=== PATIENT | male | born 1955 | race Hispanic/Latino ===

== ENCOUNTER 2016-08-28 20:44 | Emergency (ER) | payer MEDICAID, MEDICARE ==
[2016-08-28 20:58] VITALS: BP 146/86; PULSE 90; RESP 18; TEMP 98.6; O2SAT 99
--- NOTE | 2016-08-28 21:21 | ED PDOC ---
HPI: General Adult Time Seen by Provider: 08/28/16 21:01 Chief Complaint (Nursing): GI Problem History Per: Patient History/Exam Limitations: no limitations Onset/Duration Of Symptoms: Days (x 2) Have you had recent travel within the past 21 days to any of the following countries: [place], [place], [place] or [place]?: No Current Symptoms Are (Timing): Still Present Additional Complaint(s): Shaheen Jones is a 61 year old male, with a previous medical history of hemorrhoids and hypertension, who presents to the ED with complaints of exacerbating hemorrhoids ongoing for the past couple of days. Pt reports to straining with bowel movements a couple of days ago which caused the hemorrhoid to protrude out the rectum with blood from the rectal site. Pt reports manually inserting the hemorrhoid back in but states hemorrhoid protrudes with any bowel pressure. Pt denies any fever, chills, nausea or vomiting. Pt denies any additional complaints at this time. PMD: Edouard Thomas MD Past Medical History Reviewed: Historical Data, Nursing Documentation, Vital Signs Vital Signs: Last Vital Signs Temp 98.6 F 08/28/16 20:54 Pulse 90 08/28/16 20:54 Resp 18 08/28/16 20:54 BP 146/86 08/28/16 20:54 Pulse Ox 99 08/28/16 21:41 - Medical History PMH: Anxiety, HTN - Surgical History Surgical History: No Surg Hx - Family History Family History: States: Unknown Family Hx - Allergies Allergies/Adverse Reactions: Allergies Allergy/AdvReac Type Severity Reaction Status Date / Time No Known Allergies Allergy Verified 08/28/16 20:54 Review of Systems ROS Statement: Except As Marked, All Systems Reviewed And Found Negative Constitutional: Negative for: Fever, Chills Gastrointestinal: Positive for: Other (hemorrhoid ). Negative for: Nausea, Vomiting, Diarrhea Physical Exam - Reviewed Nursing Documentation Reviewed: Yes Vital Signs Reviewed: Yes - Physical Exam Appears: Positive for: Well, Non-toxic, No Acute Distress Head Exam: Positive for: ATRAUMATIC, NORMAL INSPECTION, NORMOCEPHALIC Cardiovascular/Chest: Positive for: Regular Rate, Rhythm Respiratory: Positive for: CNT, Normal Breath Sounds Rectal: Positive for: Other (hernia noted. non reducible with bleeding. questionable fissure ) Neurologic/Psych: Positive for: Alert, Oriented - Laboratory Results Result Diagrams: 08/28/16 21:47 08/28/16 21:47 - ECG O2 Sat by Pulse Oximetry: 99 (RA) Pulse Ox Interpretation: Normal Medical Decision Making Medical Decision Making: Initial Impression: hemorrhoid Initial Plan: * CT pelvis with IV contrast * labs * reevaluation Scribe Attestation: Documented by Joy Thakur, acting as a scribe for Aby Gifford PA-C. Provider Scribe Attestation: All medical record entries made by the Scribe were at my direction and personally dictated by me. I have reviewed the chart and agree that the record accurately reflects my personal performance of the history, physical exam, medical decision making, and the department course for this patient. I have also personally directed, reviewed, and agree with the discharge instructions and disposition Disposition - Clinical Impression Clinical Impression: Hemorrhoids - Patient ED Disposition Is Patient to be Admitted: Transfer of Care - Disposition Disposition Time: 00:00 Condition: STABLE Patient Signed Over To: Kortney Stover Handoff Comments: ct results
[2016-08-28 21:51] LABS: BASO # 0.1 K/uL (0.0-0.2); EOS # 0.2 K/uL (0.0-0.7); EOS % 1.8 % (0.0-4.0); HEMATOCRIT 34.3 % (35.0-51.0); LYMPH # 2.6 K/uL (1.0-4.3); LYMPH % 30.6 % (20.0-40.0); MEAN CELL VOLUME 92.5 fl (80.0-94.0); MEAN CORPUSCULAR HEMOGLOBIN 31.2 pg (27.0-31.0); MEAN CORPUSCULAR HGB CONC 33.8 g/dL (33.0-37.0); MEAN PLATELET VOLUME 6.8 fl (7.2-11.7); MONO # 0.9 K/uL (0.0-0.8); MONO % 10.3 % (0.0-10.0); NEUT # 4.9 K/uL (1.8-7.0); NEUT % 56.3 % (50.0-75.0); NRBC % 0.1 % (0.0-0.0); RED CELL DISTRIBUTION WIDTH 13.2 % (11.5-14.5); WHITE BLOOD COUNT 8.6 K/uL (4.8-10.8)
[2016-08-28 22:07] LABS: ALB/GLOB RATIO 1.3 (1.0-2.1); ALKALINE PHOSPHATASE 81 U/L (38-126); ALT/SGPT 25 U/L (21-72); AST/SGOT 31 U/L (17-59); BILIRUBIN,TOTAL 0.4 mg/dl (0.2-1.3); BLOOD UREA NITROGEN 22 mg/dl (9-20); CALCIUM 9.5 mg/dL (8.4-10.2); CARBON DIOXIDE 27 mmol/L (22-30); CHLORIDE 98 mmol/L (98-107); GFR AFRICAN-AMERICAN > 60; GLUCOSE,RANDOM 104 mg/dL (75-110); POTASSIUM 3.7 MMOL/L (3.6-5.0); SODIUM 137 mmol/l (132-148); TOTAL PROTEIN 7.6 G/DL (6.3-8.2)
[2016-08-28] MEDS ORDERED: Sodium Chloride 0.9% 50 ML IV ONE (22:52)
[2016-08-28] MEDS ORDERED: Iohexol 300 100 ML IJ ONE (22:52)
--- NOTE | 2016-08-29 00:04 | CT ---
EXAM: CT Pelvis With Intravenous Contrast. CLINICAL HISTORY: 61 years old, male; Signs and symptoms; Other: Bleeding hemmorroids? ? ; Additional info: Blleding hemmorroid and ? fistula TECHNIQUE: Axial computed tomography images of the pelvis with intravenous contrast. This CT exam was performed using one or more of the following dose reduction techniques: automated exposure control, adjustment of the mA and/or kV according to patient size, and/or use of iterative reconstruction technique. Coronal and sagittal reformatted images were created and reviewed. CONTRAST: 90 mL of [id number] administered intravenously. COMPARISON: No relevant prior studies available. FINDINGS: Bowel: No obstruction. No mucosal thickening. Intraperitoneal space: No significant fluid collection. No free air. Bladder: Unremarkable. Reproductive: Mildly enlarged prostate. Small hydroceles. Bones/joints: No acute fracture. Soft tissues: Unremarkable. Vasculature: Mild atherosclerotic disease. No lower abdominal aortic aneurysm. Lymph nodes: No pathologically enlarged lymph nodes. IMPRESSION: 1.No acute findings. 2.Non-acute findings are described above.
--- NOTE | 2016-08-29 00:56 | ED PDOC ---
- Laboratory Results Result Diagrams: 08/28/16 21:47 08/28/16 21:47 - ECG O2 Sat by Pulse Oximetry: 99 (RA) - Progress ED Course And Treament: Case endorsed to database report writer from [facility] pending CT EXAM: CT Pelvis With Intravenous Contrast. CLINICAL HISTORY: 61 years old, male; Signs and symptoms; Other: Bleeding hemmorroids? ? ; Additional info: Blleding hemmorroid and ? fistula TECHNIQUE: Axial computed tomography images of the pelvis with intravenous contrast. This CT exam was performed using one or more of the following dose reduction techniques: automated exposure control, adjustment of the mA and/or kV according to patient size, and/or use of iterative reconstruction technique. Coronal and sagittal reformatted images were created and reviewed. CONTRAST: 90 mL of [id number] administered intravenously. COMPARISON: No relevant prior studies available. FINDINGS: Bowel: No obstruction. No mucosal thickening. Intraperitoneal space: No significant fluid collection. No free air. Bladder: Unremarkable. Reproductive: Mildly enlarged prostate. Small hydroceles. Bones/joints: No acute fracture. Soft tissues: Unremarkable. Vasculature: Mild atherosclerotic disease. No lower abdominal aortic aneurysm. Lymph nodes: No pathologically enlarged lymph nodes. IMPRESSION: 1. No acute findings. 2. Non-acute findings are described above. Patient educated on findings, discharged with rx Colace, Anusol. Advised follow up PMD/surgery. Return to ED for worsening/concerning symptoms. Disposition - Clinical Impression Clinical Impression: Hemorrhoids - POA Present On Arrival: None - Disposition Referrals: Rodriguez Real MD [Staff Provider] - Disposition: Routine/Home Disposition Time: 00:55 Condition: STABLE Prescriptions: Hydrocortisone 2.5% (Rectal) [Anusol-HC] 30 applic [place] BID #1 tube Docusate [Colace] 100 mg PO BID #30 cap Instructions: Hemorrhoids (ED)
== END 2016-08-29 00:57 | disposition home or self-care (01) ==
LOC: H.ER 20:44
DX: K64.9 Unspecified hemorrhoids (principal)

== ENCOUNTER 2017-05-19 14:06 | Emergency (ER) | payer MEDICAID ==
[2017-05-19 14:19] VITALS: BP 119/62; PULSE 94; RESP 20; TEMP 97.9; O2SAT 97
--- NOTE | 2017-05-19 15:20 | ED PDOC ---
HPI: Trauma/Fall - HPI Time Seen by Provider: 05/19/17 14:30 Chief Complaint (Nursing): Rib Injury Chief Complaint (Provider): Right-Sided Rib Injury History Per: Patient History/Exam Limitations: no limitations Onset/Duration Of Symptoms: Days (x3) Additional Complaint(s): Shaheen Jones is a 61 year old male that presents to the ED with a chief complaint of rib pain that he has been experiencing for the past three days. Patient reports that three days ago, he missed a step while walking on stairs and fell onto his right side, which resulted in an injury to his ribs, though he reports that his right arm was under him and broke his fall. He denies any head injury and denies use of anticoagulants. Past Medical History Reviewed: Historical Data, Nursing Documentation, Vital Signs Vital Signs: Last Vital Signs Temp 97.9 F 05/19/17 14:18 Pulse 94 H 05/19/17 14:18 Resp 20 05/19/17 14:18 BP 119/62 05/19/17 14:18 Pulse Ox 97 05/19/17 14:18 - Medical History PMH: Anxiety, HTN, Hypercholesterolemia - Family History Family History: States: Unknown Family Hx - Home Medications Home Medications: Ambulatory Orders Medication Instructions Recorded Docusate [Colace] 100 mg PO BID #30 cap 08/29/16 Hydrocortisone 2.5% (Rectal) 30 applic [place] BID #1 tube 08/29/16 [Anusol-HC] Docusate [Colace] 100 mg PO BID PRN #20 cap 05/19/17 Naproxen 1 tab PO Q12 PRN #10 tab 05/19/17 Ondansetron ODT [Zofran ODT] 4 mg PO Q8 PRN #8 odt 05/19/17 oxyCODONE/Acetaminophen [Percocet 1 ea PO Q6 PRN #8 tab 05/19/17 5/325 mg Tab] - Allergies Allergies/Adverse Reactions: Allergies Allergy/AdvReac Type Severity Reaction Status Date / Time No Known Allergies Allergy Verified 05/19/17 14:15 Review of Systems Musculoskeletal: Positive for: Other (right-sided rib pain) Physical Exam - Reviewed Nursing Documentation Reviewed: Yes Vital Signs Reviewed: Yes - Physical Exam Appears: Positive for: Non-toxic, No Acute Distress Head Exam: Positive for: ATRAUMATIC, NORMOCEPHALIC Skin: Positive for: Normal Color, Warm Eye Exam: Positive for: EOMI, Normal appearance, PERRL Neck: Positive for: Normal (No C-spine TTP), Painless ROM Cardiovascular/Chest: Positive for: Regular Rate, Rhythm. Negative for: Chest Non Tender (TTP right lower rib cage), Murmur Respiratory: Positive for: Normal Breath Sounds (Lung sounds clear to auscultation). Negative for: Wheezing Gastrointestinal/Abdominal: Positive for: Normal Exam, Soft. Negative for: Tenderness Neurologic/Psych: Positive for: Alert, Oriented. Negative for: Motor/Sensory Deficits - ECG O2 Sat by Pulse Oximetry: 97 (RA) Pulse Ox Interpretation: Normal - Progress ED Course And Treament: xry: no fx noted; no pnuemothorax incentive spirometry instructions given in ED by resp therapist. Medical Decision Making Medical Decision Making: Impression: Rib Fracture Plan: * X-Ray Right Ribs and Chest * Reevaluation X-Ray Right Ribs and Chest FINDINGS: RIGHT RIBS: No fracture or focal lesion visualized. LUNGS: Clear. PLEURA: No pneumothorax or pleural fluid. CARDIOVASCULAR: Normal sized heart. No pulmonary vascular congestion. OTHER FINDINGS: None. IMPRESSION: Unremarkable radiographs of the chest and right ribs. No right rib fracture. 15:47 X-Ray does not show fracture or pneumothorax. Patient given Rx for Colace, Naproxen, Percocet, and Zofran, is stable for discharge home. Clinical Impression: Rib Injury Scribe Attestation: Documented by Nuzhat Brenner, acting as a scribe for Jose Gonzalez PA-C. Provider Scribe Attestation: All medical record entries made by the Scribe were at my direction and personally dictated by me. I have reviewed the chart and agree that the record accurately reflects my personal performance of the history, physical exam, medical decision making, and the department course for this patient. I have also personally directed, reviewed, and agree with the discharge instructions and disposition. Disposition - Clinical Impression Clinical Impression: Rib injury - Patient ED Disposition Is Patient to be Admitted: No - Disposition Disposition: Routine/Home Disposition Time: 15:47 Condition: FAIR Prescriptions: Docusate [Colace] 100 mg PO BID PRN #20 cap PRN Reason: Constipation Naproxen 1 tab PO Q12 PRN #10 tab PRN Reason: Pain, Moderate (4-7) Ondansetron ODT [Zofran ODT] 4 mg PO Q8 PRN #8 odt PRN Reason: Nausea/Vomiting oxyCODONE/Acetaminophen [Percocet 5/325 mg Tab] 1 ea PO Q6 PRN #8 tab PRN Reason: Pain, Severe (8-10) Instructions: Rib Fracture (ED) Forms: [id number] (Bengali)
--- NOTE | 2017-05-19 15:35 | RAD ---
PROCEDURE: Radiographs of the Chest and Right Ribs. HISTORY: rib injury COMPARISON: None available. TECHNIQUE: Frontal radiograph of the chest and multiple oblique radiographs of the right ribs were obtained. FINDINGS: RIGHT RIBS: No fracture or focal lesion visualized. LUNGS: Clear. PLEURA: No pneumothorax or pleural fluid. CARDIOVASCULAR: Normal sized heart. No pulmonary vascular congestion. OTHER FINDINGS: None. IMPRESSION: Unremarkable radiographs of the chest and right ribs. No right rib fracture.
== END 2017-05-19 17:08 | disposition home or self-care (01) ==
LOC: H.ER 14:06
DX: S29.9XXA Unspecified injury of thorax, initial encounter (principal); W10.9XXA Fall (on) (from) unspecified stairs and steps, initial encounter; Y93.01 Activity, walking, marching and hiking; I10 Essential (primary) hypertension; E78.00 Pure hypercholesterolemia, unspecified

== ENCOUNTER 2017-10-15 11:47 | Emergency (ER) | payer OTHER ==
--- NOTE | 2017-10-15 13:04 | ED PDOC ---
HPI: Chest Pain Time Seen by Provider: 10/15/17 13:02 Chief Complaint (Nursing): Chest Pain Chief Complaint (Provider): chest pain History Per: Patient (62 y/o male h/o HTN/HLD here with intermittent chest pain 2 min that occurs after belching/eating meals x 2 days. Denies any vomiting. NOtes additional LUQ pain intermittent unrelated worsening with movement. Has h /o back pain with pain radiating to left leg as well ongoing x years. Patient has no h/o stress test/echo/cardiac evaluation in past.) Past Medical History Reviewed: Historical Data, Nursing Documentation, Vital Signs Vital Signs: Last Vital Signs Temp 98.1 F 10/15/17 12:09 Pulse 86 10/15/17 12:09 Resp 16 10/15/17 12:09 BP 163/80 H 10/15/17 12:09 Pulse Ox 100 10/15/17 13:04 - Medical History PMH: Anxiety, HTN, Hypercholesterolemia - Family History Family History: States: Unknown Family Hx - Home Medications Home Medications: Ambulatory Orders Medication Instructions Recorded Docusate [Colace] 100 mg PO BID #30 cap 08/29/16 Hydrocortisone 2.5% (Rectal) 30 applic [place] BID #1 tube 08/29/16 [Anusol-HC] Docusate [Colace] 100 mg PO BID PRN #20 cap 05/19/17 Naproxen 1 tab PO Q12 PRN #10 tab 05/19/17 Ondansetron ODT [Zofran ODT] 4 mg PO Q8 PRN #8 odt 05/19/17 oxyCODONE/Acetaminophen [Percocet 1 ea PO Q6 PRN #8 tab 05/19/17 5/325 mg Tab] Omeprazole Magnesium [Prilosec Otc] 20 mg PO DAILY #14 tablet. 10/15/17 - Allergies Allergies/Adverse Reactions: Allergies Allergy/AdvReac Type Severity Reaction Status Date / Time No Known Allergies Allergy Verified 05/19/17 14:15 Review of Systems ROS Statement: Except As Marked, All Systems Reviewed And Found Negative Cardiovascular: Positive for: Chest Pain Gastrointestinal: Positive for: Other (belching) Physical Exam - Reviewed Nursing Documentation Reviewed: Yes Vital Signs Reviewed: Yes - Physical Exam Appears: Positive for: Well, Non-toxic, No Acute Distress Head Exam: Positive for: ATRAUMATIC, NORMAL INSPECTION, NORMOCEPHALIC Skin: Positive for: Normal Color, Warm, DRY Eye Exam: Positive for: EOMI, Normal appearance, PERRL ENT: Positive for: Normal ENT Inspection Neck: Positive for: Normal, Painless ROM Cardiovascular/Chest: Positive for: Regular Rate, Rhythm Respiratory: Positive for: CNT, Normal Breath Sounds Gastrointestinal/Abdominal: Positive for: Normal Exam, Soft Back: Positive for: Normal Inspection Extremity: Positive for: Normal ROM Neurologic/Psych: Positive for: Alert, Oriented - Laboratory Results Result Diagrams: 10/15/17 13:47 10/15/17 17:22 - ECG ECG Rhythm: Positive for: Sinus Rhythm (nsr 78bpm no ectopy; no acute changes) O2 Sat by Pulse Oximetry: 100 Disposition - Clinical Impression Clinical Impression: Hyponatremia, Chest pain - Patient ED Disposition Is Patient to be Admitted: No - Disposition Referrals: [facility] [Outside] Disposition: Routine/Home Disposition Time: 17:55 Condition: FAIR Additional Instructions: FOLLOW UP WITH CLINIC ON FRIDAY PLANNED TO REPEAT BLOODWORK AND ARRANGE FURTHER EVALUATION OF SYMPTOMS. Prescriptions: Omeprazole Magnesium [Prilosec Otc] 20 mg PO DAILY #14 tablet.dr Instructions: Chest Pain, Hyponatremia (DC), Gastritis, Ulcer and Gastritis Diet Forms: [employer] (German)
[2017-10-15 13:54] LABS: BASO # 0.1 K/uL (0.0-0.2); BASO % 0.9 % (0.0-2.0); EOS % 0.7 % (0.0-4.0); HEMOGLOBIN 12.3 g/dL (12.0-18.0); LYMPH # 1.8 K/uL (1.0-4.3); MEAN CELL VOLUME 89.4 fl (80.0-94.0); MEAN CORPUSCULAR HEMOGLOBIN 31.6 pg (27.0-31.0); MEAN CORPUSCULAR HGB CONC 35.3 g/dL (33.0-37.0); MEAN PLATELET VOLUME 6.1 fl (7.2-11.7); MONO # 0.6 K/uL (0.0-0.8); MONO % 9.4 % (0.0-10.0); NEUT # 3.8 K/uL (1.8-7.0); RBC 3.89 Mil/uL (4.40-5.90); RED CELL DISTRIBUTION WIDTH 12.1 % (11.5-14.5); WHITE BLOOD COUNT 6.3 K/uL (4.8-10.8)
[2017-10-15 14:05] LABS: ALB/GLOB RATIO 1.4 (1.0-2.1); ALBUMIN 4.3 g/dL (3.5-5.0); ALT/SGPT 36 U/L (21-72); AST/SGOT 35 U/L (17-59); BLOOD UREA NITROGEN 13 mg/dl (9-20); CALCIUM 9.2 mg/dL (8.4-10.2); GFR AFRICAN-AMERICAN > 60; GFR NON-AFRICAN AMERICAN > 60; LIPASE 120 U/L (23-300)
[2017-10-15] MEDS ORDERED: Sodium Chloride 0.9% 1,000 ML IV STA (14:32)
[2017-10-15 17:36] LABS: BLOOD UREA NITROGEN 11 mg/dl (9-20); CALCIUM 8.6 mg/dL (8.4-10.2); GFR AFRICAN-AMERICAN > 60; GFR NON-AFRICAN AMERICAN > 60
--- NOTE | 2017-10-15 17:48 | CARD ---
APPROVED REPORT EKG Measurement Heart [id number] NM [id number] <Conclusion> Normal sinus rhythm Normal ECG
[2017-10-15 18:35] VITALS: BP 145/67; PULSE 78; RESP 17; TEMP 97.8; O2SAT 99
== END 2017-10-15 18:33 | disposition home or self-care (01) ==
LOC: H.ER 11:47
DX: R07.9 Chest pain, unspecified (principal); E87.1 Hypo-osmolality and hyponatremia; I10 Essential (primary) hypertension; E78.00 Pure hypercholesterolemia, unspecified
CPT/HCPCS: 80048; 80053; 83690; 84484; 85025; 93005; 96374; 99284; J7040

== ENCOUNTER 2017-12-09 14:06 | Emergency (ER) | payer OTHER ==
[2017-12-09 14:17] VITALS: RESP 16; O2SAT 100
--- NOTE | 2017-12-09 14:56 | ED PDOC ---
HPI: Chest Pain Time Seen by Provider: 12/09/17 14:23 Chief Complaint (Nursing): Chest Pain Chief Complaint (Provider): Chest Pain History Per: Patient History/Exam Limitations: no limitations Onset/Duration Of Symptoms: Days (since september) Current Symptoms Are (Timing): Still Present Context: Food Quality: Burning Additional Complaint(s): 62 year old male with a history of HTN, high cholesterol, anxiety and gastritis presents to the ED with an intermittent burning sensation in his chest for months, since september. Burning sensation is brought on by food and is relieved when he burps. Patient has been taking Omeprazole since his last visit to the ED on 10/15/2017 with minimal relief. He currently denies discomfort, chest pain, shortness of breath, arm pain and abdominal pain. PMD: Dr. Teofilo Nicolas Past Medical History Reviewed: Historical Data, Nursing Documentation, Vital Signs Vital Signs: Last Vital Signs Temp 98.0 F 12/09/17 17:50 Pulse 88 12/09/17 17:50 Resp 16 12/09/17 17:50 BP 160/72 H 12/09/17 17:50 Pulse Ox 100 12/09/17 18:21 - Medical History PMH: Anxiety, HTN, Hypercholesterolemia - Surgical History Surgical History: No Surg Hx - Family History Family History: States: Unknown Family Hx - Social History Current smoker - smoking cessation education provided: No Ex-Smoker (has not smoked in the last 12 months): Yes Alcohol: Occasional Drugs: Denies - Home Medications Home Medications: Ambulatory Orders Medication Instructions Recorded Docusate [Colace] 100 mg PO BID #30 cap 08/29/16 Hydrocortisone 2.5% (Rectal) 30 applic [place] BID #1 tube 08/29/16 [Anusol-HC] Docusate [Colace] 100 mg PO BID PRN #20 cap 05/19/17 Naproxen 1 tab PO Q12 PRN #10 tab 05/19/17 Ondansetron ODT [Zofran ODT] 4 mg PO Q8 PRN #8 odt 05/19/17 oxyCODONE/Acetaminophen [Percocet 1 ea PO Q6 PRN #8 tab 05/19/17 5/325 mg Tab] Omeprazole Magnesium [Prilosec Otc] 20 mg PO DAILY #14 tablet. 10/15/17 Famotidine [Pepcid] 20 mg PO DAILY PRN #10 tab 12/09/17 - Allergies Allergies/Adverse Reactions: Allergies Allergy/AdvReac Type Severity Reaction Status Date / Time No Known Allergies Allergy Verified 12/09/17 14:14 TEZ Risk Score for UA/NSTEMI - TEZ Risk Score Age > 64: NO 3 or more CAD Risk Factors: NO Known CAD (Stenosis greater than 50%): NO Aspirin use in past 7 days: NO Severe Angina: NO EKG ST changes greater than 0.5mm: NO Positive Cardiac Marker: NO TEZ Score: 0 Risk %: 5% Curb-65 Severity Score - CURB-65 Severity Score Confusion: No Bun >19mg/dl (>7mmol/L): No Respiratory Rate greater than/equal to 30: No Systolic BP <90 or Diastolic BP less than/equal 60mmHg: No Age >64: No Curb-65 Score: 0 Percentage 30-day mortality: 0.6% Wells Criteria for PE - Wells Criteria for Pulmonary Embolism Clinical Signs and Symptoms of DVT: No P.E is #1 Diagnosis, or Equally Likely: No Heart Rate >100: No Immobilization at least 3 days;Surgery previous 4 weeks: No Previous, objectively diagnosed PE or DVT: No Hemoptysis: No Malignancy w/treatment within 6 months, or palliative: No Total Score: 0 Review of Systems ROS Statement: Except As Marked, All Systems Reviewed And Found Negative Cardiovascular: Negative for: Chest Pain Respiratory: Negative for: Shortness of Breath Gastrointestinal: Negative for: Abdominal Pain Musculoskeletal: Negative for: Arm Pain Physical Exam - Reviewed Nursing Documentation Reviewed: Yes Vital Signs Reviewed: Yes - Physical Exam Appears: Positive for: Non-toxic, No Acute Distress Head Exam: Positive for: ATRAUMATIC, NORMAL INSPECTION, NORMOCEPHALIC Skin: Positive for: Normal Color, Warm, DRY Eye Exam: Positive for: EOMI, Normal appearance, PERRL Neck: Positive for: Normal, Painless ROM, Supple Cardiovascular/Chest: Positive for: Regular Rate, Rhythm. Negative for: Murmur Respiratory: Positive for: Normal Breath Sounds. Negative for: Respiratory Distress Gastrointestinal/Abdominal: Positive for: Normal Exam, Soft. Negative for: Tenderness Extremity: Positive for: Normal ROM. Negative for: Deformity Neurologic/Psych: Positive for: Alert, Oriented. Negative for: Motor/Sensory Deficits - Laboratory Results Result Diagrams: 12/09/17 15:45 12/09/17 15:45 - ECG O2 Sat by Pulse Oximetry: 100 (RA) Pulse Ox Interpretation: Normal Medical Decision Making Medical Decision Making: Time: 14:30 Impression: gastritis exacerbation; r/o electrolyte derangement vs infection Initial Plan: --CMP --CXR --Lipase --Troponin I --CBC with diff Chest x-ray FINDINGS: LUNGS: No active pulmonary disease. PLEURA: No significant pleural effusion identified. No pneumothorax apparent. CARDIOVASCULAR: Atherosclerotic aortic calcifications. Cardiomediastinal silhouette within normal limits. OSSEOUS STRUCTURES: Unchanged. VISUALIZED UPPER ABDOMEN: Normal. OTHER FINDINGS: None. IMPRESSION: No active disease. Time; 18:00 Labs were reviewed and are normal except for low sodium levels. Patient has a history of low sodium when looking at old labs. pt aware. EKG was normal, sinus rhythm . troponin negative. --Patient reports feeling fine throughout ER stay and thinks his symptoms were due to anxiety or gastritis. --He is stable and will be discharged. Advised to follow up with GI doctor for endoscopy and follow up with clinic where he follows for maintenance of blood pressure. Patient requires no further treatment in the ED at this time. ---- Scribe Attestation: Documented by Alis Cooper, acting as a scribe for Wayne Ann MD Provider Scribe Attestation: All medical record entries made by the Scribe were at my direction and personally dictated by me. I have reviewed the chart and agree that the record accurately reflects my personal performance of the history, physical exam, medical decision making, and the department course for this patient. I have also personally directed, reviewed, and agree with the discharge instructions and disposition. Disposition - Clinical Impression Clinical Impression: Gastritis - Patient ED Disposition Is Patient to be Admitted: No Counseled Patient/Family Regarding: Studies Performed, Diagnosis, Need For Followup - Disposition Referrals: [facility] [Outside] Leopoldo Sarah MD [Medical Doctor] - Disposition: Routine/Home Disposition Time: 18:00 Condition: IMPROVED Additional Instructions: follow up with GI doctor as well as in the clinic this week return to the ED with any worsening or concerning symptoms MARCELA ALVAREZ, thank you for letting us take care of you today. Your provider was Wayne Ann MD and you were treated for CHEST PAIN. The emergency medical care you received today was directed at your acute symptoms. If you were prescribed any medication, please fill it and take as directed. It may take several days for your symptoms to resolve. Return to the Emergency Department if your symptoms worsen, do not improve, or if you have any other problems. Please contact your doctor or call one of the physicians/clinics you have been referred to that are listed on the Patient Visit Information form that is included in your discharge packet. Bring any paperwork you were given at discharge with you along with any medications you are taking to your follow up visit. Our treatment cannot replace ongoing medical care by a primary care provider outside of the emergency department. Thank you for allowing the [facility] team to be part of your care today. If you had an X-Ray or CT scan: A Radiologist will review the ED reading if any change in treatment is needed we will contact you. If you had a blood, urine, or wound culture: It will take several days for the results, if any change in treatment is needed we will contact you. If you had an STI test: It will take 48 hours for the results. Please call after 1 week if you have not heard back. Prescriptions: Famotidine [Pepcid] 20 mg PO DAILY PRN #10 tab PRN Reason: Heartburn Instructions: Gastritis (DC) Forms: [employer] (Hungarian)
[2017-12-09 15:59] LABS: BASO % 0.6 % (0.0-2.0); EOS # 0.1 K/uL (0.0-0.7); EOS % 1.1 % (0.0-4.0); HEMOGLOBIN 12.2 g/dL (12.0-18.0); MEAN CELL VOLUME 90.1 fl (80.0-94.0); MEAN CORPUSCULAR HEMOGLOBIN 31.1 pg (27.0-31.0); MEAN CORPUSCULAR HGB CONC 34.5 g/dL (33.0-37.0); MEAN PLATELET VOLUME 6.5 fl (7.2-11.7); MONO # 0.8 K/uL (0.0-0.8); MONO % 10.5 % (0.0-10.0); NEUT # 4.8 K/uL (1.8-7.0); NEUT % 61.8 % (50.0-75.0); RBC 3.92 Mil/uL (4.40-5.90); RED CELL DISTRIBUTION WIDTH 12.2 % (11.5-14.5); WHITE BLOOD COUNT 7.7 K/uL (4.8-10.8)
[2017-12-09 16:11] LABS: ALB/GLOB RATIO 1.4 (1.0-2.1); ALBUMIN 4.5 g/dL (3.5-5.0); ALT/SGPT 34 U/L (21-72); AST/SGOT 33 U/L (17-59); BLOOD UREA NITROGEN 14 mg/dl (9-20); CALCIUM 9.5 mg/dL (8.4-10.2); GFR AFRICAN-AMERICAN > 60; GFR NON-AFRICAN AMERICAN > 60; LIPASE 130 U/L (23-300)
--- NOTE | 2017-12-09 17:06 | RAD ---
Date of service: 12/09/2017 HISTORY: chest pain COMPARISON: Chest radiograph dated 05/19/2017. TECHNIQUE: Chest PA and lateral FINDINGS: LUNGS: No active pulmonary disease. PLEURA: No significant pleural effusion identified. No pneumothorax apparent. CARDIOVASCULAR: Atherosclerotic aortic calcifications. Cardiomediastinal silhouette within normal limits. OSSEOUS STRUCTURES: Unchanged. VISUALIZED UPPER ABDOMEN: Normal. OTHER FINDINGS: None. IMPRESSION: No active disease.
[2017-12-09 19:33] VITALS: BP 160/72; PULSE 88; TEMP 98
== END 2017-12-09 17:53 | disposition home or self-care (01) ==
LOC: H.ER 14:06
DX: K29.70 Gastritis, unspecified, without bleeding (principal); I10 Essential (primary) hypertension; E78.00 Pure hypercholesterolemia, unspecified; Z87.891 Personal history of nicotine dependence

== ENCOUNTER 2018-01-29 17:04 | Emergency (ER) | payer OTHER ==
[2018-01-29 18:14] LABS: BASO # 0.1 K/uL (0.0-0.2); BASO % 0.8 % (0.0-2.0); EOS # 0.2 K/uL (0.0-0.7); EOS % 2.3 % (0.0-4.0); HEMOGLOBIN 12.1 g/dL (12.0-18.0); LYMPH # 2.8 K/uL (1.0-4.3); LYMPH % 34.8 % (20.0-40.0); MEAN CELL VOLUME 93.2 fl (80.0-94.0); MEAN CORPUSCULAR HEMOGLOBIN 31.5 pg (27.0-31.0); MEAN CORPUSCULAR HGB CONC 33.8 g/dL (33.0-37.0); MEAN PLATELET VOLUME 6.6 fl (7.2-11.7); MONO # 0.8 K/uL (0.0-0.8); MONO % 10.5 % (0.0-10.0); NEUT # 4.1 K/uL (1.8-7.0); NEUT % 51.6 % (50.0-75.0); RBC 3.83 Mil/uL (4.40-5.90); RED CELL DISTRIBUTION WIDTH 13.2 % (11.5-14.5); WHITE BLOOD COUNT 7.9 K/uL (4.8-10.8)
[2018-01-29 18:21] LABS: PROTHROMBIN TIME 11.3 Seconds (9.8-13.1)
[2018-01-29 18:23] LABS: ALB/GLOB RATIO 1.2 (1.0-2.1); ALBUMIN 4.4 g/dL (3.5-5.0); ALT/SGPT 24 U/L (21-72); AST/SGOT 29 U/L (17-59); BLOOD UREA NITROGEN 13 mg/dl (9-20); CALCIUM 9.2 mg/dL (8.4-10.2); GFR NON-AFRICAN AMERICAN > 60
--- NOTE | 2018-01-29 18:55 | CT ---
Date of service: 01/29/2018 PROCEDURE: CT HEAD WITHOUT CONTRAST. HISTORY: loss of balance COMPARISON: None available. TECHNIQUE: Axial computed tomography images were obtained through the head/brain without intravenous contrast. Radiation dose: Total exam DLP = 720.2 MGy-cm. This CT exam was performed using one or more of the following dose reduction techniques: Automated exposure control, adjustment of the mA and/or kV according to patient size, and/or use of iterative reconstruction technique. FINDINGS: HEMORRHAGE: No intracranial hemorrhage. BRAIN: No mass effect or edema. No atrophy or chronic microvascular ischemic changes. VENTRICLES: Unremarkable. No hydrocephalus. CALVARIUM: Unremarkable. PARANASAL SINUSES: Unremarkable as visualized. No significant inflammatory changes. MASTOID AIR CELLS: Unremarkable as visualized. No inflammatory changes. OTHER FINDINGS: None. IMPRESSION: No acute intracranial pathology.
--- NOTE | 2018-01-29 19:11 | ED PDOC ---
Syncope/Near Syncope/Dizziness Time Seen by Provider: 01/29/18 17:43 Chief Complaint (Nursing): Dizziness/Lightheaded Chief Complaint (Provider): Dizziness/Lightheaded History Per: Patient History/Exam Limitations: no limitations Onset/Duration Of Symptoms: Days (x7) Current Symptoms Are (Timing): Still Present Additional Complaint(s): Shaheen Jones is a 62 year old male with a past medical history of hypertension, gastritis, anxiety, and cholesterol who is presenting to the ED with complaints of intermittent episodes of "feeling wobbly" with associated eye throbbing and tingling inside head onset 1 week ago. Patient states that he was seen in the clinic yesterday where he was evaluated and his hyponatremia was normal and patient states that he is unsure if this is due to his anxiety. He admits that he expressed concerns of this to Dr. Aguilar yesterday in the clinic but he is still unsure. Patient offers no other medical complaints at this time. PMD: none provided Past Medical History Reviewed: Historical Data, Nursing Documentation, Vital Signs Vital Signs: Last Vital Signs Temp 98.2 F 01/29/18 17:13 Pulse 84 01/29/18 17:13 Resp 16 01/29/18 17:13 BP 167/80 H 01/29/18 17:13 Pulse Ox 97 01/29/18 17:13 - Medical History PMH: Anxiety, Gastritis, HTN, Hypercholesterolemia Denies: Chronic Kidney Disease - Surgical History Surgical History: No Surg Hx - Family History Family History: States: Unknown Family Hx - Social History Current smoker - smoking cessation education provided: No Ex-Smoker (has not smoked in the last 12 months): Yes Alcohol: Social Drugs: Denies - Immunization History Hx Tetanus Toxoid Vaccination: No Hx Influenza Vaccination: No Hx Pneumococcal Vaccination: No - Home Medications Home Medications: Ambulatory Orders Medication Instructions Recorded Docusate [Colace] 100 mg PO BID #30 cap 08/29/16 Hydrocortisone 2.5% (Rectal) 30 applic [place] BID #1 tube 08/29/16 [Anusol-HC] Docusate [Colace] 100 mg PO BID PRN #20 cap 05/19/17 Naproxen 1 tab PO Q12 PRN #10 tab 05/19/17 Ondansetron ODT [Zofran ODT] 4 mg PO Q8 PRN #8 odt 05/19/17 oxyCODONE/Acetaminophen [Percocet 1 ea PO Q6 PRN #8 tab 05/19/17 5/325 mg Tab] Omeprazole Magnesium [Prilosec Otc] 20 mg PO DAILY #14 tablet. 10/15/17 Famotidine [Pepcid] 20 mg PO DAILY PRN #10 tab 12/09/17 - Allergies Allergies/Adverse Reactions: Allergies Allergy/AdvReac Type Severity Reaction Status Date / Time No Known Allergies Allergy Verified 01/29/18 17:13 Review of Systems ROS Statement: Except As Marked, All Systems Reviewed And Found Negative Eyes: Positive for: Other (eye throbbing) Neurological: Positive for: Other (tingling inside head, feels wobbly) Psych: Positive for: Anxiety Physical Exam - Reviewed Nursing Documentation Reviewed: Yes Vital Signs Reviewed: Yes - Physical Exam Appears: Positive for: Well, Non-toxic, No Acute Distress Head Exam: Positive for: ATRAUMATIC, NORMAL INSPECTION, NORMOCEPHALIC Skin: Positive for: Normal Color, Warm, DRY Eye Exam: Positive for: EOMI, Normal appearance, PERRL ENT: Positive for: Normal ENT Inspection Neck: Positive for: Normal, Painless ROM Cardiovascular/Chest: Positive for: Regular Rate, Rhythm. Negative for: Murmur Respiratory: Positive for: Normal Breath Sounds. Negative for: Respiratory Distress Gastrointestinal/Abdominal: Positive for: Normal Exam, Soft. Negative for: Tenderness Back: Positive for: Normal Inspection Extremity: Positive for: Normal ROM. 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 Negative for: Motor/Sensory Deficits - Laboratory Results Result Diagrams: 01/29/18 18:00 01/29/18 18:00 - ECG O2 Sat by Pulse Oximetry: 97 (RA) Pulse Ox Interpretation: Normal Medical Decision Making Medical Decision Making: Time: 18:00 Plan: --CT Head --CMP --CBC --Coag CT Head: FINDINGS: HEMORRHAGE: No intracranial hemorrhage. BRAIN: No mass effect or edema. No atrophy or chronic microvascular ischemic changes. VENTRICLES: Unremarkable. No hydrocephalus. CALVARIUM: Unremarkable. PARANASAL SINUSES: Unremarkable as visualized. No significant inflammatory changes. MASTOID AIR CELLS: Unremarkable as visualized. No inflammatory changes. OTHER FINDINGS: None. IMPRESSION: No acute intracranial pathology. 20:45 Labs were reviewed with benign results. Upon provider evaluation patient is medically stable, and requires no further treatment in the ED at this time. Patient will be discharged home. Counseling was provided and all questions were answered regarding diagnosis and need for outpatient follow up. There is agreement to discharge plan. Return if symptoms persist or worsen. Patient is ambulating well. He is reqsting to follow up with Dr. Desouza since he is in the area. Provider will give patient a referral. Scribe Attestation: Documented by Corrie Rahman, acting as a scribe for Wayne Ann MD. Provider Scribe Attestation: All medical record entries made by the Scribe were at my direction and personally dictated by me. I have reviewed the chart and agree that the record accurately reflects my personal performance of the history, physical exam, medical decision making, and the department course for this patient. I have also personally directed, reviewed, and agree with the discharge instructions and disposition. Disposition - Clinical Impression Clinical Impression: Balance problem - Disposition Condition: IMPROVED Forms: [employer] (Lao)
[2018-01-29 20:45] VITALS: RESP 18
[2018-01-29 21:42] VITALS: BP 132/80; PULSE 80; TEMP 98.1; O2SAT 99
== END 2018-01-29 21:42 | disposition home or self-care (01) ==
LOC: H.ER 17:04
DX: R42 Dizziness and giddiness (principal); R26.81 Unsteadiness on feet; E78.00 Pure hypercholesterolemia, unspecified; I10 Essential (primary) hypertension

== ENCOUNTER 2018-03-23 15:49 | Emergency (ER) | payer OTHER ==
--- NOTE | 2018-03-23 16:53 | ED PDOC ---
HPI: Abdomen Time Seen by Provider: 03/23/18 16:10 Chief Complaint (Nursing): Abdominal Pain Chief Complaint (Provider): LUQ pain History Per: Patient History/Exam Limitations: no limitations Additional Complaint(s): Pt reports LUQ pain X 2 days, intermittent, started while eating, worse with pressing down in area, feels a "ball" in LUQ. Also c/o constipation X 2 days. Denies fever, nausea, vomiting, diarrhea, CP, SOB. Past Medical History Reviewed: Nursing Documentation, Vital Signs Vital Signs: Last Vital Signs Temp 97.8 F 03/23/18 15:59 Pulse 97 H 03/23/18 15:59 Resp 16 03/23/18 15:59 BP 183/89 H 03/23/18 15:59 Pulse Ox 100 03/23/18 15:59 - Medical History PMH: Anxiety, Gastritis, HTN, Hypercholesterolemia Denies: Chronic Kidney Disease - Surgical History Surgical History: No Surg Hx - Family History Family History: States: Unknown Family Hx - Living Arrangements Living Arrangements: With Family - Social History Current smoker - smoking cessation education provided: No Alcohol: None - Immunization History Hx Tetanus Toxoid Vaccination: No Hx Influenza Vaccination: No Hx Pneumococcal Vaccination: No - Home Medications Home Medications: Ambulatory Orders Medication Instructions Recorded Docusate [Colace] 100 mg PO BID #30 cap 08/29/16 Hydrocortisone 2.5% (Rectal) 30 applic [place] BID #1 tube 08/29/16 [Anusol-HC] Docusate [Colace] 100 mg PO BID PRN #20 cap 05/19/17 Naproxen 1 tab PO Q12 PRN #10 tab 05/19/17 Ondansetron ODT [Zofran ODT] 4 mg PO Q8 PRN #8 odt 05/19/17 oxyCODONE/Acetaminophen [Percocet 1 ea PO Q6 PRN #8 tab 05/19/17 5/325 mg Tab] Omeprazole Magnesium [Prilosec Otc] 20 mg PO DAILY #14 tablet. 10/15/17 Famotidine [Pepcid] 20 mg PO DAILY PRN #10 tab 12/09/17 Famotidine [Pepcid] 20 mg PO BID #20 tab 03/23/18 Ibuprofen [Motrin] 600 mg PO Q6H PRN #20 tab 03/23/18 - Allergies Allergies/Adverse Reactions: Allergies Allergy/AdvReac Type Severity Reaction Status Date / Time No Known Allergies Allergy Verified 01/29/18 17:13 Review of Systems Constitutional: Negative for: Fever, Chills Cardiovascular: Negative for: Chest Pain, Palpitations Respiratory: Negative for: Cough, Shortness of Breath Gastrointestinal: Positive for: Abdominal Pain. Negative for: Nausea, Vomiting, Diarrhea Genitourinary Male: Negative for: Dysuria, Hematuria Musculoskeletal: Negative for: Neck Pain, Back Pain Skin: Negative for: Rash, Lesions Neurological: Negative for: Headache Physical Exam - Reviewed Nursing Documentation Reviewed: Yes Vital Signs Reviewed: Yes - Physical Exam Appears: Positive for: Well, No Acute Distress Head Exam: Positive for: ATRAUMATIC, NORMAL INSPECTION Skin: Positive for: Normal Color, Warm, Dry Eye Exam: Positive for: Normal appearance, EOMI, PERRL Cardiovascular/Chest: Positive for: Regular Rate, Rhythm Respiratory: Positive for: Normal Breath Sounds. Negative for: Crackles, Rales, Wheezing Gastrointestinal/Abdominal: Positive for: Bowel Sounds, Soft, Tenderness (Epigastric/LUQ). Negative for: Mass, Distended, Guarding, Rebound Back: Positive for: Normal Inspection. Negative for: L CVA Tenderness, R CVA Tenderness Extremity: Positive for: Normal ROM Neurologic/Psych: Positive for: Alert, Oriented - Laboratory Results Result Diagrams: 03/23/18 17:33 03/23/18 17:33 - ECG O2 Sat by Pulse Oximetry: 100 Medical Decision Making Medical Decision Makin yo male with LUQ pain. - labs - EKG - CT abd/pelvis Time: 1841 CT RESULTS FINDINGS: LOWER THORAX: Unremarkable. LIVER: Unremarkable. No gross lesion or ductal dilatation. GALLBLADDER AND BILE DUCTS: Unremarkable. PANCREAS: Unremarkable. No gross lesion or ductal dilatation. SPLEEN: Unremarkable. ADRENALS: Unremarkable. No mass. KIDNEYS AND URETERS: Unremarkable. No hydronephrosis. No solid mass. VASCULATURE: Unremarkable. No aortic aneurysm. There is mild calcified atheromatous plaque of the descending thoracic aorta. BOWEL: Unremarkable. No obstruction. No gross mural thickening. APPENDIX: Normal appendix. PERITONEUM: Unremarkable. No free fluid. No free air. LYMPH NODES: Unremarkable. No enlarged lymph nodes. BLADDER: Unremarkable. REPRODUCTIVE: Normal prostate BONES: No acute fracture. OTHER FINDINGS: None. IMPRESSION: Unremarkable examination. Disposition - Clinical Impression Clinical Impression: Abdominal pain - Disposition Referrals: [facility] [Outside] Disposition Time: 22:00 Condition: STABLE Prescriptions: Famotidine [Pepcid] 20 mg PO BID #20 tab Ibuprofen [Motrin] 600 mg PO Q6H PRN #20 tab PRN Reason: Pain, Moderate (4-7) Instructions: Acute Abdomen (Belly Pain) Forms: [email or web address] ([place] Korean)
[2018-03-23 17:36] LABS: BASO # 0.1 K/uL (0.0-0.2); BASO % 0.8 % (0.0-2.0); EOS # 0.1 K/uL (0.0-0.7); EOS % 1.1 % (0.0-4.0); HEMOGLOBIN 12.5 g/dL (12.0-18.0); LYMPH # 1.8 K/uL (1.0-4.3); LYMPH % 27.8 % (20.0-40.0); MEAN CELL VOLUME 92.2 fl (80.0-94.0); MEAN CORPUSCULAR HEMOGLOBIN 31.4 pg (27.0-31.0); MEAN PLATELET VOLUME 6.5 fl (7.2-11.7); MONO # 0.6 K/uL (0.0-0.8); MONO % 9.5 % (0.0-10.0); NEUT # 3.9 K/uL (1.8-7.0); NEUT % 60.8 % (50.0-75.0); RBC 3.98 Mil/uL (4.40-5.90); RED CELL DISTRIBUTION WIDTH 12.6 % (11.5-14.5); WHITE BLOOD COUNT 6.4 K/uL (4.8-10.8)
--- NOTE | 2018-03-23 17:39 | RAD ---
Date of service: 03/23/2018 HISTORY: CP COMPARISON: 12/09/2017 TECHNIQUE: Chest PA and lateral FINDINGS: LUNGS: No active pulmonary disease. PLEURA: No significant pleural effusion identified. No pneumothorax apparent. CARDIOVASCULAR: No aortic atherosclerotic calcification present OSSEOUS STRUCTURES: No significant abnormalities. VISUALIZED UPPER ABDOMEN: Normal. OTHER FINDINGS: None. IMPRESSION: No active disease.
[2018-03-23 17:44] LABS: PROTHROMBIN TIME 11.5 Seconds (9.8-13.1)
[2018-03-23 17:47] LABS: PARTIAL THROMBOPLASTIN TIME 29.8 Seconds (25.6-37.1)
[2018-03-23 17:51] LABS: ALB/GLOB RATIO 1.2 (1.0-2.1); ALBUMIN 4.2 g/dL (3.5-5.0); ALT/SGPT 29 U/L (21-72); AST/SGOT 36 U/L (17-59); BLOOD UREA NITROGEN 14 mg/dl (9-20); CALCIUM 9.6 mg/dL (8.4-10.2); GFR NON-AFRICAN AMERICAN > 60; LIPASE 87 U/L (23-300)
[2018-03-23] MEDS ORDERED: Sodium Chloride 0.9% 50 ML IV ONE (18:12)
[2018-03-23] MEDS ORDERED: Iohexol 300 100 ML IJ ONE (18:12)
--- NOTE | 2018-03-23 18:56 | CT ---
Date of service: 03/23/2018 PROCEDURE: CT Abdomen and Pelvis with contrast HISTORY: LUQ pain COMPARISON: CT pelvis 08/28/2016 TECHNIQUE: Contrast dose: 95 mL Omnipaque 300 Radiation dose: Total exam DLP = 288.13 mGy-cm. This CT exam was performed using one or more of the following dose reduction techniques: Automated exposure control, adjustment of the mA and/or kV according to patient size, and/or use of iterative reconstruction technique. FINDINGS: LOWER THORAX: Unremarkable. LIVER: Unremarkable. No gross lesion or ductal dilatation. GALLBLADDER AND BILE DUCTS: Unremarkable. PANCREAS: Unremarkable. No gross lesion or ductal dilatation. SPLEEN: Unremarkable. ADRENALS: Unremarkable. No mass. KIDNEYS AND URETERS: Unremarkable. No hydronephrosis. No solid mass. VASCULATURE: Unremarkable. No aortic aneurysm. There is mild calcified atheromatous plaque of the descending thoracic aorta. BOWEL: Unremarkable. No obstruction. No gross mural thickening. APPENDIX: Normal appendix. PERITONEUM: Unremarkable. No free fluid. No free air. LYMPH NODES: Unremarkable. No enlarged lymph nodes. BLADDER: Unremarkable. REPRODUCTIVE: Normal prostate BONES: No acute fracture. OTHER FINDINGS: None. IMPRESSION: Unremarkable examination.
[2018-03-23 18:59] VITALS: TEMP 98.7
[2018-03-23 20:58] LABS: URINE BILIRUBIN NEGATIVE (NEGATIVE); URINE BLOOD SMALL (NEGATIVE); URINE CLARITY CLEAR (Clear); URINE COLOR STRAW (YELLOW); URINE GLUCOSE (UA) NEG (Normal); URINE LEUKOCYTE ESTERASE NEG Leu/uL (Negative); URINE PROTEIN NEGATIVE (NEGATIVE); URINE UROBILINOGEN 0.2-1.0 mg/dL (0.2-1.0)
[2018-03-24 04:37] VITALS: BP 132/60; PULSE 67; RESP 20; O2SAT 99
--- NOTE | 2018-03-24 06:56 | CARD ---
APPROVED REPORT Date of service: 03/23/2018 EKG Measurement Heart [id number] <Conclusion> Normal sinus rhythm Nonspecific ST abnormality Abnormal ECG
== END 2018-03-23 22:35 | disposition home or self-care (01) ==
LOC: H.ER 15:49
DX: R10.12 Left upper quadrant pain (principal); I10 Essential (primary) hypertension
CPT/HCPCS: 71046; 74177; 80053; 81003; 83690; 84484; 85025; 85610; 85730; 93005; 99284; Q9967

== ENCOUNTER 2018-06-11 13:30 | Emergency (ER) | payer OTHER ==
[2018-06-11] MEDS ORDERED: Iohexol 240 (50 ml) PO ONE (14:42)
--- NOTE | 2018-06-11 14:55 | ED PDOC ---
HPI: Abdomen Time Seen by Provider: 06/11/18 14:00 Chief Complaint (Nursing): Abdominal Pain Chief Complaint (Provider): Abdominal Pain History Per: Patient History/Exam Limitations: no limitations Onset/Duration Of Symptoms: Days, Waxing/Waning Current Symptoms Are (Timing): Still Present Location Of Pain/Discomfort: LLQ Associated Symptoms: denies: Fever, Nausea, Vomiting, Diarrhea Additional Complaint(s): 63 year old male with a past medical history of hypertension, hypercholesterolemia, anxiety and a balance issue who is presenting to the ED for evaluation of left lower quagrant abdominal pain associated with the feeling of being gassy onset 1 day ago. Patient states that the pain is on and off and reports normal bowel movements with no straining or blood. He denies any nausea, vomiting, or fevers. Patient states that he just wants to be checked out. PMD: Clinic Past Medical History Reviewed: Historical Data, Nursing Documentation, Vital Signs Vital Signs: Last Vital Signs Temp 97.7 F 06/11/18 13:37 Pulse 80 06/11/18 13:37 Resp 18 06/11/18 13:37 BP 170/80 H 06/11/18 13:37 Pulse Ox 99 06/11/18 13:37 - Medical History PMH: Anxiety, Gastritis, HTN, Hypercholesterolemia Denies: Chronic Kidney Disease - Surgical History Surgical History: No Surg Hx - Family History Family History: States: Unknown Family Hx - Social History Current smoker - smoking cessation education provided: No Ex-Smoker (has not smoked in the last 12 months): Yes Alcohol: Social Drugs: Denies - Immunization History Hx Tetanus Toxoid Vaccination: No Hx Influenza Vaccination: No Hx Pneumococcal Vaccination: No - Home Medications Home Medications: Ambulatory Orders Medication Instructions Recorded Docusate [Colace] 100 mg PO BID #30 cap 08/29/16 Hydrocortisone 2.5% (Rectal) 30 applic [place] BID #1 tube 08/29/16 [Anusol-HC] Docusate [Colace] 100 mg PO BID PRN #20 cap 05/19/17 Ondansetron ODT [Zofran ODT] 4 mg PO Q8 PRN #8 odt 05/19/17 RX: Naproxen 1 tab PO Q12 PRN #10 tab 05/19/17 oxyCODONE/Acetaminophen [Percocet 1 ea PO Q6 PRN #8 tab 05/19/17 5/325 mg Tab] Omeprazole Magnesium [Prilosec Otc] 20 mg PO DAILY #14 tablet. 10/15/17 Famotidine [Pepcid] 20 mg PO DAILY PRN #10 tab 12/09/17 Famotidine [Pepcid] 20 mg PO BID #20 tab 03/23/18 Ibuprofen [Motrin] 600 mg PO Q6H PRN #20 tab 03/23/18 - Allergies Allergies/Adverse Reactions: Allergies Allergy/AdvReac Type Severity Reaction Status Date / Time No Known Allergies Allergy Verified 01/29/18 17:13 Review of Systems ROS Statement: Except As Marked, All Systems Reviewed And Found Negative Constitutional: Negative for: Fever Gastrointestinal: Positive for: Abdominal Pain. Negative for: Vomiting, Diarr hea, Hematochezia Physical Exam - Reviewed Nursing Documentation Reviewed: Yes Vital Signs Reviewed: Yes - Physical Exam Appears: Positive for: Non-toxic, No Acute Distress Head Exam: Positive for: ATRAUMATIC, NORMAL INSPECTION, NORMOCEPHALIC Skin: Positive for: Normal Color, Warm, DRY Eye Exam: Positive for: Normal appearance ENT: Positive for: Normal ENT Inspection Neck: Positive for: Normal Cardiovascular/Chest: Positive for: Regular Rate, Rhythm. Negative for: Murmur Respiratory: Positive for: Normal Breath Sounds. Negative for: Respiratory Distress Gastrointestinal/Abdominal: Positive for: Bowel Sounds, Soft, Tenderness (minimal left lower quadrant tenderness) Back: Positive for: Normal Inspection. Negative for: L CVA Tenderness, R CVA Tenderness Extremity: Positive for: Normal ROM. Negative for: Deformity, Swelling Neurologic/Psych: Positive for: Alert, Oriented. Negative for: Motor/Sensory Deficits - Laboratory Results Result Diagrams: 06/11/18 15:03 06/11/18 15:03 - ECG O2 Sat by Pulse Oximetry: 99 (RA) Pulse Ox Interpretation: Normal Medical Decision Making Medical Decision Making: Time: 14:42 Plan: --CT Abd/Pelvis --CMP --CBC --Omnipaque 50 ml PO Time: 1700 --After receiving PO contrast, patient developed rash. Ordered Benadryl. Time: 1810 CT Abdomen FINDINGS: LOWER THORAX: Unremarkable. LIVER: Unremarkable. No gross lesion or ductal dilatation. GALLBLADDER AND BILE DUCTS: Unremarkable. PANCREAS: Unremarkable. No gross lesion or ductal dilatation. SPLEEN: Unremarkable. ADRENALS: Unremarkable. No mass. KIDNEYS AND URETERS: Unremarkable. No hydronephrosis. No solid mass. VASCULATURE: Atherosclerotic calcification and mural plaque present. Findings are seen throughout the aorta which is non aneurysmal. BOWEL: Unremarkable. No obstruction. No gross mural thickening. APPENDIX: Normal appendix. PERITONEUM: Unremarkable. No free fluid. No free air. LYMPH NODES: Unremarkable. No enlarged lymph nodes. BLADDER: Unremarkable. REPRODUCTIVE: Unremarkable. BONES: No acute fracture. OTHER FINDINGS: None. IMPRESSION: No acute or significant findings related to/ accounting for the clinical presentation. Additional benign and/or incidental findings described above. No significant interval change compared to the prior examination(s). Time: 1815 --On reevaluation patient is tolerating PO and feels better. Findings discussed with patient, including borderline anemia and blood in urine. Patient is medically cleared for discharge home, already has Pepcid at home and is advised to follow up with his PMD in 1-2 days. Scribe Attestation: Documented by Corrie Rahman, acting as a scribe for Wayne Ann MD. Provider Scribe Attestation: All medical record entries made by the Scribe were at my direction and personally dictated by me. I have reviewed the chart and agree that the record accurately reflects my personal performance of the history, physical exam, medical decision making, and the department course for this patient. I have also personally directed, reviewed, and agree with the discharge instructions and disposition. Disposition - Clinical Impression Clinical Impression: Abdominal discomfort - Patient ED Disposition Is Patient to be Admitted: No Counseled Patient/Family Regarding: Studies Performed, Diagnosis, Need For Followup - Disposition Disposition: Routine/Home Disposition Time: 18:16 Condition: IMPROVED Additional Instructions: follow up with your primary doctor in 1-2 days for reevaluation and for better blood pressure control return to the ED with any worsening or concerning symptoms Instructions: Stomach Ache and Stomach Upset Forms: [facility] ([place])
[2018-06-11] MEDS ORDERED: Iohexol 240 (50 ml) ONE (15:05)
[2018-06-11 15:31] LABS: BASO # 0.1 K/uL (0.0-0.2); BASO % 1.1 % (0.0-2.0); EOS # 0.1 K/uL (0.0-0.7); EOS % 2.1 % (0.0-4.0); HEMOGLOBIN 11.7 g/dL (12.0-18.0); LYMPH # 2.1 K/uL (1.0-4.3); MEAN CELL VOLUME 91.8 fl (80.0-94.0); MEAN CORPUSCULAR HEMOGLOBIN 29.8 pg (27.0-31.0); MEAN CORPUSCULAR HGB CONC 32.4 g/dL (33.0-37.0); MEAN PLATELET VOLUME 7.3 fl (7.2-11.7); MONO # 0.7 K/uL (0.0-0.8); MONO % 11.8 % (0.0-10.0); NEUT # 2.6 K/uL (1.8-7.0); NRBC % 0.1 % (0.0-0.0); RBC 3.93 Mil/uL (4.40-5.90); RED CELL DISTRIBUTION WIDTH 13.5 % (11.5-14.5); WHITE BLOOD COUNT 5.6 K/uL (4.8-10.8)
[2018-06-11 15:37] LABS: ALB/GLOB RATIO 1.3 (1.0-2.1); ALBUMIN 4.3 g/dL (3.5-5.0); BLOOD UREA NITROGEN 14 mg/dl (9-20); CALCIUM 9.5 mg/dL (8.4-10.2); GFR NON-AFRICAN AMERICAN > 60
[2018-06-11 15:38] LABS: ALT/SGPT 22 U/L (21-72); AST/SGOT 32 U/L (17-59)
[2018-06-11 15:39] LABS: URINE BILIRUBIN NEGATIVE (NEGATIVE); URINE BLOOD SMALL (NEGATIVE); URINE CLARITY CLEAR (Clear); URINE COLOR STRAW (YELLOW); URINE GLUCOSE (UA) NEG (NEGATIVE); URINE LEUKOCYTE ESTERASE NEG Leu/uL (Negative); URINE PROTEIN NEGATIVE (NEGATIVE); URINE UROBILINOGEN 0.2-1.0 mg/dL (0.2-1.0)
[2018-06-11] MEDS ORDERED: DiphenhydrAMINE 50 mg/ml Inj IVP STA (17:02)
[2018-06-11] MEDS ORDERED: DiphenhydrAMINE 50 mg/ml Inj ONE (17:15)
--- NOTE | 2018-06-11 18:14 | CT ---
Date of service: 06/11/2018 PROCEDURE: CT Abdomen and Pelvis with contrast HISTORY: Left lower quadrant abdominal pain. COMPARISON: 03/23/2018 TECHNIQUE: Oral contrast only. Radiation dose: Total exam DLP = 334.50 mGy-cm. This CT exam was performed using one or more of the following dose reduction techniques: Automated exposure control, adjustment of the mA and/or kV according to patient size, and/or use of iterative reconstruction technique. FINDINGS: LOWER THORAX: Unremarkable. LIVER: Unremarkable. No gross lesion or ductal dilatation. GALLBLADDER AND BILE DUCTS: Unremarkable. PANCREAS: Unremarkable. No gross lesion or ductal dilatation. SPLEEN: Unremarkable. ADRENALS: Unremarkable. No mass. KIDNEYS AND URETERS: Unremarkable. No hydronephrosis. No solid mass. VASCULATURE: Atherosclerotic calcification and mural plaque present. Findings are seen throughout the aorta which is non aneurysmal. BOWEL: Unremarkable. No obstruction. No gross mural thickening. APPENDIX: Normal appendix. PERITONEUM: Unremarkable. No free fluid. No free air. LYMPH NODES: Unremarkable. No enlarged lymph nodes. BLADDER: Unremarkable. REPRODUCTIVE: Unremarkable. BONES: No acute fracture. OTHER FINDINGS: None. IMPRESSION: No acute or significant findings related to/ accounting for the clinical presentation. Additional benign and/or incidental findings described above. No significant interval change compared to the prior examination(s).
[2018-06-11 18:52] VITALS: BP 125/78; PULSE 78; RESP 19; TEMP 97.6
[2018-06-15 22:19] VITALS: O2SAT 99
== END 2018-06-11 18:52 | disposition home or self-care (01) ==
LOC: H.ER 13:30
DX: R10.9 Unspecified abdominal pain (principal); I10 Essential (primary) hypertension; F41.9 Anxiety disorder, unspecified; E78.00 Pure hypercholesterolemia, unspecified
CPT/HCPCS: 74176; 80053; 81003; 85025; 87086; 96374; 96375; 99282; J1200; Q9966

== ENCOUNTER 2018-08-17 16:36 | Emergency (ER) | payer OTHER ==
[2018-08-17 16:50] VITALS: TEMP 98.6
[2018-08-17 17:24] LABS: BASO % 0.8 % (0.0-2.0); EOS # 0.1 K/uL (0.0-0.7); EOS % 1.4 % (0.0-4.0); HEMOGLOBIN 12.2 g/dL (12.0-18.0); LYMPH % 34.2 % (20.0-40.0); MEAN CELL VOLUME 92.4 fl (80.0-94.0); MEAN CORPUSCULAR HEMOGLOBIN 30.3 pg (27.0-31.0); MEAN CORPUSCULAR HGB CONC 32.8 g/dL (33.0-37.0); MEAN PLATELET VOLUME 6.9 fl (7.2-11.7); MONO # 0.6 K/uL (0.0-0.8); MONO % 10.5 % (0.0-10.0); NEUT # 3.2 K/uL (1.8-7.0); NEUT % 53.1 % (50.0-75.0); RBC 4.02 Mil/uL (4.40-5.90); RED CELL DISTRIBUTION WIDTH 13.2 % (11.5-14.5); WHITE BLOOD COUNT 5.9 K/uL (4.8-10.8)
--- NOTE | 2018-08-17 17:26 | ED PDOC ---
HPI: Chest Pain Time Seen by Provider: 08/17/18 16:56 Chief Complaint (Nursing): Chest Pain Chief Complaint (Provider): Chest Pain History Per: Patient History/Exam Limitations: no limitations Onset/Duration Of Symptoms: Days (x2) Current Symptoms Are (Timing): Still Present Additional Complaint(s): 63 year old male with a history of hypertension and anxiety presents to the ED with chest pain for x2 days. Patient also developed a rash, but has no history of chicken pox or shingles. PMD: Noe Aguilar Past Medical History Reviewed: Historical Data, Nursing Documentation, Vital Signs Vital Signs: Last Vital Signs Temp 98.6 F 08/17/18 16:48 Pulse 100 H 08/17/18 16:48 Resp 18 08/17/18 16:48 BP 178/88 H 08/17/18 16:48 Pulse Ox 99 08/17/18 16:48 - Medical History PMH: Anxiety, Gastritis, HTN, Hypercholesterolemia Denies: Chronic Kidney Disease - Surgical History Surgical History: No Surg Hx - Family History Family History: States: Unknown Family Hx - Immunization History Hx Tetanus Toxoid Vaccination: No Hx Influenza Vaccination: No Hx Pneumococcal Vaccination: No - Home Medications Home Medications: Ambulatory Orders Medication Instructions Recorded Docusate [Colace] 100 mg PO BID #30 cap 08/29/16 Hydrocortisone 2.5% (Rectal) 30 applic MO BID #1 tube 08/29/16 [Anusol-HC] Docusate [Colace] 100 mg PO BID PRN #20 cap 05/19/17 Naproxen 1 tab PO Q12 PRN #10 tab 05/19/17 Ondansetron ODT [Zofran ODT] 4 mg PO Q8 PRN #8 odt 05/19/17 oxyCODONE/Acetaminophen [Percocet 1 ea PO Q6 PRN #8 tab 05/19/17 5/325 mg Tab] Omeprazole Magnesium [Prilosec Otc] 20 mg PO DAILY #14 tablet. 10/15/17 Famotidine [Pepcid] 20 mg PO DAILY PRN #10 tab 12/09/17 Famotidine [Pepcid] 20 mg PO BID #20 tab 03/23/18 Ibuprofen [Motrin] 600 mg PO Q6H PRN #20 tab 03/23/18 - Allergies Allergies/Adverse Reactions: Allergies Allergy/AdvReac Type Severity Reaction Status Date / Time No Known Allergies Allergy Verified 01/29/18 17:13 Review of Systems ROS Statement: Except As Marked, All Systems Reviewed And Found Negative Cardiovascular: Positive for: Chest Pain Skin: Positive for: Rash Physical Exam - Reviewed Nursing Documentation Reviewed: Yes Vital Signs Reviewed: Yes - Physical Exam Appears: Positive for: Non-toxic, No Acute Distress Head Exam: Positive for: ATRAUMATIC, NORMOCEPHALIC Skin: Positive for: Rash (area of erythema on the left chest over the T6 region, no vesicles) Eye Exam: Positive for: Normal appearance Cardiovascular/Chest: Positive for: Regular Rate, Rhythm Respiratory: Positive for: Normal Breath Sounds. Negative for: Respiratory Distress Extremity: Positive for: Normal ROM (upper and lower) Neurological/Psych: Positive for: Awake, Alert, Oriented (x3) - Laboratory Results Result Diagrams: 08/17/18 17:12 08/17/18 17:12 - ECG ECG Rhythm: Positive for: Sinus Rhythm (normal) Rate: 81 O2 Sat by Pulse Oximetry: 99 (RA) Pulse Ox Interpretation: Normal Medical Decision Making Medical Decision Making: Time: 1655 Workup for etiology cardiac versus anxiety. Possibility of shingles with rash emerging now. Plan: --labs --EKG --CXR Time: 1831 --No abnormalities on labs, CXR unremarkable. Patient to be discharge home, advised to follow up with PMD within 48 hours. Return parameters discussed. --- Scribe Attestation: Documented by Stephie Dong, acting as a scribe for Violet Garrison MD. Provider Scribe Attestation: All medical record entries made by the Scribe were at my direction and personally dictated by me. I have reviewed the chart and agree that the record accurately reflects my personal performance of the history, physical exam, medical decision making, and the department course for this patient. I have also personally directed, reviewed, and agree with the discharge instructions and disposition. Disposition - Clinical Impression Clinical Impression: Atypical chest pain - Disposition Disposition Time: 18:32 Condition: IMPROVED Additional Instructions: Follow up with primary medical doctor in one to two days. Begin taking medications if you begin to develop a rash with vesicles. Return to the emergency department if symptoms worsen or if new symptoms develop. Instructions: Chest Pain (DC) Forms: [facility] ([employer]) Print Language: UKRAINIAN
[2018-08-17 17:39] LABS: PROTHROMBIN TIME 11.7 Seconds (9.8-13.1)
[2018-08-17 17:41] LABS: ALB/GLOB RATIO 1.4 (1.0-2.1); ALBUMIN 4.5 g/dL (3.5-5.0); ALT/SGPT 28 U/L (21-72); AST/SGOT 31 U/L (17-59); BLOOD UREA NITROGEN 15 mg/dl (9-20); CALCIUM 9.6 mg/dL (8.4-10.2); GFR NON-AFRICAN AMERICAN > 60
[2018-08-17 17:42] LABS: PARTIAL THROMBOPLASTIN TIME 31.4 Seconds (25.6-37.1)
[2018-08-17 17:51] LABS: B-TYPE NATRIURETIC PEPTIDE 43.4 pg/ml (0-900)
[2018-08-17 18:54] VITALS: BP 132/74; PULSE 87; RESP 19; O2SAT 98
--- NOTE | 2018-08-18 08:23 | RAD ---
Date of service: 08/17/2018 HISTORY: possible admission COMPARISON: No prior. FINDINGS: LUNGS: No active pulmonary disease. PLEURA: No significant pleural effusion identified, no pneumothorax apparent. CARDIOVASCULAR: Calcific atherosclerotic changes are seen related to the thoracic aorta. Normal cardiac size. No pulmonary vascular congestion. OSSEOUS STRUCTURES: No significant abnormalities. VISUALIZED UPPER ABDOMEN: Normal. OTHER FINDINGS: None. IMPRESSION: No interval acute cardiopulmonary disease appreciated.
--- NOTE | 2018-08-18 21:22 | CARD ---
APPROVED REPORT Date of service: 08/17/2018 EKG Measurement Heart [id number] <Conclusion> Normal sinus rhythm Normal ECG
--- NOTE | 2018-08-18 21:22 | CARD ---
APPROVED REPORT Date of service: 08/17/2018 EKG Measurement Heart [id number] <Conclusion> Sinus rhythm with premature atrial complexes Otherwise normal ECG
== END 2018-08-17 18:53 | disposition home or self-care (01) ==
LOC: H.ER 16:36
DX: R07.89 Other chest pain (principal); E78.00 Pure hypercholesterolemia, unspecified; F41.9 Anxiety disorder, unspecified; I10 Essential (primary) hypertension; I49.1 Atrial premature depolarization
CPT/HCPCS: 71045; 80053; 83880; 84484; 85025; 85610; 85730; 86850; 86900; 93005; 96374; 99284; J1885